=== PATIENT | male | born 1990 | race African-American/Black ===

== ENCOUNTER 2018-07-12 21:13 | Emergency (ER) | payer SELFPAY ==
[~2018-07-12] VITALS: Ht 180.3 cm; Wt 99.0 kg
[2018-07-12 21:40] VITALS: BP 154/92
[2018-07-13] MEDS ORDERED: ACETAMINOPHEN 500MG TABLET ONE (00:35)
== END 2018-07-13 01:20 | disposition home or self-care (01) ==
LOC: ER 21:13
DX: J06.9 Acute upper respiratory infection, unspecified (principal); F12.10 Cannabis abuse, uncomplicated; Z98.890 Other specified postprocedural states
CPT/HCPCS: 99281

== ENCOUNTER 2019-01-28 20:05 | Emergency (ER) | payer SELFPAY ==
[~2019-01-28] VITALS: Ht 180.3 cm; Wt 96.0 kg
[2019-01-28] MEDS ORDERED: KETOROLAC 30MG/ML VIAL IV STA (22:02)
[2019-01-28] MEDS ORDERED: METHYLPREDNISOLONE SOD SUCC 125 MG/2 ML VIAL IV STA (22:02)
[2019-01-28] MEDS ORDERED: SODIUM CHLORIDE 0.9% 1,000 ML IV ONE (22:02)
[2019-01-28] MEDS ORDERED: IPRATROPIUM/ALBUTEROL 0.5-3(2.5)MG/3ML NEB HHN ONE (22:15)
[2019-01-28] MEDS ORDERED: LEVOFLOXACIN 750MG PREMIX 150 ML IV ONE (22:15)
[2019-01-28 22:59] LABS: BASOPHILS % 0.9 % (0.0-2.0); EOSINOPHILS % 4.2 % (0.0-5.0); HEMOGLOBIN. 16.6 g/dL (14.0-18.0); LYMPHOCYTES % 34.6 % (20.0-50.0); MEAN CORPUSCULAR HEMOGLOBIN 32.1 pg (28.0-32.0); MEAN CORPUSCULAR VOLUME 90.9 fL (80.0-94.0); MEAN PLATELET VOLUME 10.4 fl (7.4-10.4); MONOCYTES % 8.3 % (2.0-8.0); PLATELET 168 x1000/uL (130-400); RED BLOOD CELL COUNT 5.17 mill/uL (4.7-6.1); RED CELL DISTRIBUTION WIDTH 13.5 % (11.6-14.6)
[2019-01-28] MEDS ORDERED: ONDANSETRON HCL 4MG/2ML INJ IV ONE (23:00)
[2019-01-28 23:05] LABS: CHLORIDE 107 mEq/L (98-107)
[2019-01-28 23:10] LABS: D-DIMER < 0.19 mg/L FEU (<0.50); ETHANOL BLOOD < 10 mg/dL; PARTIAL THROMBOPLASTIN TIME 31.1 sec (23.4-31.0); PROTHROMBIN TIME 10.5 sec (9.6-11.0)
[2019-01-29 00:10] VITALS: BP 121/78
== END 2019-01-29 00:13 | disposition home or self-care (01) ==
LOC: ER 20:05
DX: J40 Bronchitis, not specified as acute or chronic (principal); R07.89 Other chest pain; Z98.890 Other specified postprocedural states
CPT/HCPCS: 36415; 71045; 80053; 80320; 83690; 84484; 85025; 85379; 85610; 85730; 87040; 93005; 94640; 96365; 96375; 99284; J1885; J1956; J2405; J2930; J7030; J7620; Z7610; G0480

== ENCOUNTER 2019-09-24 01:07 | Emergency (ER) | payer BC ==
[~2019-09-24] VITALS: Ht 180.3 cm; Wt 104.3 kg
[2019-09-24] MEDS ORDERED: EPINEPHRINE 1:1000 1 MG/ML AMP ONE (01:24)
[2019-09-24] MEDS ORDERED: SODIUM CHLORIDE 0.9% 1,000 ML IV ONE (01:30)
[2019-09-24] MEDS ORDERED: DIPHENHYDRAMINE 50MG/ML VIAL IV ONE (01:30)
[2019-09-24] MEDS ORDERED: FAMOTIDINE 20MG/2ML VIAL IV ONE (01:30)
[2019-09-24] MEDS ORDERED: EPINEPHRINE 1:1000 1 MG/ML AMP INJ ONE (01:30)
[2019-09-24] MEDS ORDERED: METHYLPREDNISOLONE SOD SUCC 125 MG/2 ML VIAL IV ONE (01:30)
[2019-09-24 05:37] VITALS: BP 114/63
== END 2019-09-24 06:13 | disposition home or self-care (01) ==
LOC: ER 01:07
DX: T88.6XXA Anaphylactic reaction due to adverse effect of correct drug or medicament properly administered, initial encounter (principal); T48.4X5A Adverse effect of expectorants, initial encounter; F17.200 Nicotine dependence, unspecified, uncomplicated; Y92.89 Other specified places as the place of occurrence of the external cause
CPT/HCPCS: 93005; 96374; 96375; 99291; J1200; J2930; J3490; J7030